=== PATIENT | female | born 1950 | race Caucasian/White ===

== ENCOUNTER → 2017-06-03 | Outpatient (CLI) | payer MEDICARE ==
[2017-06-03 08:03] LABS: Basophils % (A) 0 %; CH 29.4; CHCM 33.2; Eosinophils # (A) 0.1 k/uL (0-0.7); Eosinophils % (A) 3 %; HCT 43.4 % (34.0-46.0); HDW 2.49; HGB 14.2 gm/dL (11.4-16.0); Luc # (Auto) 0.12; Luc % (Auto) 2; Lymphocytes # (A) 1.5 k/uL (1.0-4.8); Lymphocytes % (A) 28 %; MCH 29.2 pg (25.0-35.0); MCHC 32.7 g/dL (31.0-37.0); MCV 89.2 fL (80.0-100.0); Mean Platelet Volume 8.8; Monocytes # (A) 0.4 k/uL (0-1.0); Monocytes % (A) 8 %; Neutrophils # (A) 3.2 k/uL (1.3-7.7); Neutrophils % (A) 59 %; RBC 4.86 m/uL (3.80-5.40); RDW 13.2 % (11.5-15.5); WBC 5.4 k/uL (3.8-10.6); WBC (Perox) 5.57
[2017-06-03 08:31] LABS: ALT 37 U/L (9-52); AST 26 U/L (14-36); Alkaline Phosphatase 83 U/L (38-126); Anion Gap 8 mmol/L; Blood Urea Nitrogen 19 mg/dL (7-17); Calcium 9.7 mg/dL (8.4-10.2); Carbon Dioxide 27 mmol/L (22-30); Chloride 107 mmol/L (98-107); Cholesterol 283 mg/dL (<200); Glucose 95 mg/dL (74-99); HDL Cholesterol 57 mg/dL (40-60); Non-African American GFR(MDRD) >60 (>60 ml/min/1.73 sqM); Sodium 142 mmol/L (137-145); Total Bilirubin 0.6 mg/dL (0.2-1.3); Total Protein 7.1 g/dL (6.3-8.2)
== END | disposition home or self-care (01) ==
LOC: LABWHC1 07:36
PROVIDERS: ATTEND Internal Medicine Cardiovascular Disease
DX: I10 Essential (primary) hypertension (principal); R42 Dizziness and giddiness
CPT/HCPCS: 36415; 80053; 80061; 84439; 84443; 85025

== ENCOUNTER → 2017-09-05 | Outpatient (CLI) | payer MEDICARE ==
[2017-09-05 09:19] LABS: Albumin 4.4 g/dL (3.5-5.0); Bilirubin, Delta 0.2 mg/dL (0.0-0.2); Bilirubin,Unconjugated 0.5 mg/dL (0.0-1.1); Total Bilirubin 0.7 mg/dL (0.2-1.3); Total Protein 6.9 g/dL (6.3-8.2)
== END | disposition home or self-care (01) ==
LOC: LABWHC1 08:33
PROVIDERS: ATTEND Internal Medicine Cardiovascular Disease
DX: E78.5 Hyperlipidemia, unspecified (principal)
CPT/HCPCS: 36415; 80061; 80076

== ENCOUNTER 2018-01-13 23:37 | Emergency (ER) | payer MEDICARE ==
--- NOTE | 2018-01-14 00:25 | XR ---
EXAMINATION TYPE: XR KUB DATE OF EXAM: 01/14/2018 COMPARISON: 03/20/2010 HISTORY: Left lower quadrant pain TECHNIQUE: 2 views FINDINGS: There is no sign of intestinal obstruction or pneumoperitoneum. Fecal pattern is normal. Th ere are no pathologic calcifications over the kidneys. There is slight lumbar dextroscoliosis. IMPRESSION: Nonacute abdomen. No change.
[2018-01-14 00:36] LABS: Basophils % (A) 0 %; Eosinophils # (A) 0.2 k/uL (0-0.7); Eosinophils % (A) 1 %; HCT 37.7 % (34.0-46.0); HGB 13.2 gm/dL (11.4-16.0); Lymphocytes % (A) 17 %; MCH 29.5 pg (25.0-35.0); MCHC 35.1 g/dL (31.0-37.0); MCV 84.1 fL (80.0-100.0); Mean Platelet Volume 8.5; Monocytes # (A) 1.1 k/uL (0-1.0); Monocytes % (A) 9 %; Neutrophils # (A) 8.7 k/uL (1.3-7.7); Neutrophils % (A) 72 %; Platelet Count 146 k/uL (150-450); RBC 4.49 m/uL (3.80-5.40); WBC 12.2 k/uL (3.8-10.6)
[2018-01-14 00:48] LABS: ALT 98 U/L (9-52); AST 117 U/L (14-36); Albumin 3.9 g/dL (3.5-5.0); Alkaline Phosphatase 143 U/L (38-126); Amylase <30 U/L (30-110); Anion Gap 13 mmol/L; Blood Urea Nitrogen 17 mg/dL (7-17); C Reactive Protein 66.1 mg/L (<10.0); Calcium 8.9 mg/dL (8.4-10.2); Carbon Dioxide 25 mmol/L (22-30); Chloride 100 mmol/L (98-107); Glucose 106 mg/dL (74-99); Lipase 53 U/L (23-300); Potassium 3.5 mmol/L (3.5-5.1); Sodium 138 mmol/L (137-145); Total Bilirubin 1.5 mg/dL (0.2-1.3); Total Protein 6.3 g/dL (6.3-8.2)
--- NOTE | 2018-01-14 00:52 | ED ---
Abdominal Pain HPI - General Chief Complaint: Abdominal Pain Stated Complaint: abd pain Time Seen by Provider: 01/13/18 23:55 Source: patient Mode of arrival: ambulatory Limitations: no limitations - History of Present Illness Initial Comments: This patient is 67-year-old woman who presents to be evaluated for left lower quadrant abdominal pain. Patient is going on her second day of symptoms. She states that this is identical to previous episodes of diverticulitis. She believes that it may be related to having eaten solid with nuts over the weekend. Patient has felt warm. She states that the pain is aching, constant, moderate intensity. It is worse with palpation of the abdomen. She has not discovered any relieving factors. She has not had nausea or vomiting. Patient denies any urinary changes. Last bowel movement was normal. MD Complaint: abdominal pain Onset/Timin -: days(s) Location: LLQ Radiation: none Migration to: no migration Severity: moderate Quality: aching Consistency: constant Improves With: nothing Worsens With: nothing Associated Symptoms: denies other symptoms - Related Data Previous Rx's Medication Instructions Recorded Ciprofloxacin HCl [Cipro] 500 mg PO Q12HR #14 tablet 01/14/18 metroNIDAZOLE [Flagyl] 500 mg PO TID #21 tab 01/14/18 Allergies Allergy/AdvReac Type Severity Reaction Status Date / Time No Known Allergies Allergy Verified 01/13/18 23:44 Review of Systems ROS Statement: Those systems with pertinent positive or pertinent negative responses have been documented in the HPI. ROS Other: All systems not noted in ROS Statement are negative. Constitutional: Denies: fever, chills Respiratory: Denies: cough, dyspnea Cardiovascular: Denies: chest pain, palpitations, edema Gastrointestinal: Reports: abdominal pain. Denies: nausea, vomiting, diarrhea, constipation, melena, hematochezia Genitourinary: Denies: dysuria, hematuria Musculoskeletal: Denies: back pain Skin: Denies: rash Neurological: Denies: headache, weakness, numbness Past Medical History Past Medical History: Atrial Fibrillation, Hypertension Additional Past Medical History / Comment(s): diverticulitis History of Any Multi-Drug Resistant Organisms: None Reported Additional Past Surgical History / Comment(s): bowel resection; A&P repair Past Psychological History: No Psychological Hx Reported Smoking Status: Never smoker Past Alcohol Use History: Rare Past Drug Use History: None Reported General Exam Limitations: no limitations General appearance: alert, in no apparent distress Head exam: Present: atraumatic, normocephalic Eye exam: Present: normal appearance. Absent: scleral icterus, conjunctival injection ENT exam: Present: normal oropharynx Neck exam: Present: normal inspection Respiratory exam: Present: normal lung sounds bilaterally. Absent: respiratory distress, wheezes, rales, rhonchi, stridor Cardiovascular Exam: Present: regular rate, normal rhythm, normal heart sounds. Absent: systolic murmur, diastolic murmur, rubs, gallop GI/Abdominal exam: Present: soft, tenderness (Moderate left lower quadrant tenderness, no rebound or guarding), normal bowel sounds. Absent: distended, guarding, rebound, rigid, mass, bruit, pulsatile mass, hernia Extremities exam: Present: normal inspection, normal capillary refill. Absent: pedal edema, calf tenderness Back exam: Present: normal inspection. Absent: CVA tenderness (R), CVA tenderness (L) Neurological exam: Present: alert Skin exam: Present: warm, dry, intact, normal color. Absent: rash Course Vital Signs 01/13/18 23:40 Temperature 98.1 F Pulse Rate 78 Respiratory 18 Rate Blood Pressure 131/80 O2 Sat by Pulse 98 Oximetry Medical Decision Making - Lab Data Result diagrams: 01/14/18 00:18 01/14/18 00:18 Lab Results 01/14/18 01/14/18 Range/Units 00:18 00:18 WBC 12.2 H (3.8-10.6) k/uL RBC 4.49 (3.80-5.40) m/uL Hgb 13.2 (11.4-16.0) gm/dL Hct 37.7 (34.0-46.0) % MCV 84.1 (80.0-100.0) fL MCH 29.5 (25.0-35.0) pg MCHC 35.1 (31.0-37.0) g/dL RDW 13.0 (11.5-15.5) % Plt Count 146 L (150-450) k/uL Neutrophils % 72 % Lymphocytes % 17 % Monocytes % 9 % Eosinophils % 1 % Basophils % 0 % Neutrophils # 8.7 H (1.3-7.7) k/uL Lymphocytes # 2.0 (1.0-4.8) k/uL Monocytes # 1.1 H (0-1.0) k/uL Eosinophils # 0.2 (0-0.7) k/uL Basophils # 0.0 (0-0.2) k/uL Sodium 138 (137-145) mmol/L Potassium 3.5 (3.5-5.1) mmol/L Chloride 100 (98-107) mmol/L Carbon Dioxide 25 (22-30) mmol/L Anion Gap 13 mmol/L BUN 17 (7-17) mg/dL Creatinine 0.70 (0.52-1.04) mg/dL Est GFR (CKD-EPI)AfAm >90 (>60 ml/min/1.73 sqM) Est GFR (CKD-EPI)NonAf 89 (>60 ml/min/1.73 sqM) Glucose 106 H (74-99) mg/dL Calcium 8.9 (8.4-10.2) mg/dL Total Bilirubin 1.5 H (0.2-1.3) mg/dL AST 117 H (14-36) U/L ALT 98 H (9-52) U/L Alkaline Phosphatase 143 H (38-126) U/L C-Reactive Protein 66.1 H (<10.0) mg/L Total Protein 6.3 (6.3-8.2) g/dL Albumin 3.9 (3.5-5.0) g/dL Amylase <30 L (30-110) U/L Lipase 53 (23-300) U/L Disposition Clinical Impression: Diverticulitis Disposition: HOME SELF-CARE Condition: Fair Instructions: Diverticulitis (ED) Prescriptions: Ciprofloxacin HCl [Cipro] 500 mg PO Q12HR #14 tablet metroNIDAZOLE [Flagyl] 500 mg PO TID #21 tab Is patient prescribed a controlled substance at d/c from ED?: No Referrals: None,Stated [Primary Care Provider] - 1-2 days Sarthak Cazares MD [STAFF PHYSICIAN] - 1-2 days
[2018-01-14] MEDS ORDERED: LEVOFLOXACIN 750 MG TAB PO STA (01:56)
[2018-01-14] MEDS ORDERED: metroNIDAZOLE 500 MG TAB PO STA (01:56)
[2018-01-14 02:33] VITALS: BP 118/63; PULSE 70; RESP 17; TEMP 98.6
== END 2018-01-14 02:33 | disposition home or self-care (01) ==
LOC: EC 23:37
DX: K57.92 Diverticulitis of intestine, part unspecified, without perforation or abscess without bleeding (principal)
CPT/HCPCS: 36415; 74018; 80053; 82150; 83690; 85025; 86140; 99284

== ENCOUNTER → 2019-04-23 | Outpatient (CLI) | payer MEDICARE ==
[2019-04-23 07:58] LABS: Basophils % (A) 1 %; Eosinophils # (A) 0.2 k/uL (0-0.7); Eosinophils % (A) 3 %; HCT 43.7 % (34.0-46.0); HGB 14.4 gm/dL (11.4-16.0); Lymphocytes # (A) 1.9 k/uL (1.0-4.8); Lymphocytes % (A) 30 %; MCH 28.9 pg (25.0-35.0); MCV 87.8 fL (80.0-100.0); Mean Platelet Volume 7.2; Monocytes # (A) 0.4 k/uL (0-1.0); Monocytes % (A) 7 %; Neutrophils # (A) 3.7 k/uL (1.3-7.7); Neutrophils % (A) 57 %; Platelet Count 192 k/uL (150-450); RBC 4.98 m/uL (3.80-5.40); RDW 12.7 % (11.5-15.5); WBC 6.4 k/uL (3.8-10.6)
[2019-04-23 11:52] LABS: African American GFR (CKD) 86.6 (60.0-200.0); Albumin 4.7 g/dL (3.80-4.90); Albumin/Globulin Ratio 2.47 (1.60-3.17); Anion Gap 9.7 mmol/L (4.00-12.00); BUN/Creat Ratio 17.5 Ratio (12.00-20.00); Calcium 9.6 mg/dL (8.7-10.3); Carbon Dioxide 28.3 mmol/L (21.6-31.8); Chol/HDL Ratio 4.12; Globulin 1.9 g/dL (1.6-3.3); Potassium 3.7 mmol/L (3.5-5.5); Total Bilirubin 0.9 mg/dL (0.2-1.2); Total Protein 6.6 g/dL (6.2-8.2)
== END | disposition home or self-care (01) ==
LOC: LABWHC1 07:37
PROVIDERS: ATTEND Internal Medicine Cardiovascular Disease
DX: I10 Essential (primary) hypertension (principal); E78.5 Hyperlipidemia, unspecified
CPT/HCPCS: 36415; 80053; 80061; 85025

== ENCOUNTER → 2019-08-14 | Outpatient (CLI) | payer MEDICARE ==
--- NOTE | 2019-08-14 10:40 | MR ---
EXAMINATION TYPE: MR brain wo/w con DATE OF EXAM: 08/14/2019 10:28 AM COMPARISON: NONE HISTORY: Abnormal gaiting TECHNIQUE: Multiplanar, multiecho imaging of the brain was obtained with and without intravenous adm inistration of 7 mL intravenous Gadavist. FINDINGS: Midline structures are unremarkable. There is a normal craniocervical junction. Echoplanar diffusion imaging is normal. There are normal vascular flow voids. The orbits are unremarkable. There is chronic mucoperiosteal thickening involving the maxillary and ethmoidal sinuses bilaterally. There is a 12 mm retention cyst or polyp arising from the medial wall of the right maxillary sinus. There is no evidence of a CP angle mass lesion. There is no acute focal lesion, mass effect or midline shift identified. I do not see evidence of int racranial blood. Following intravenous administration of gadolinium, I do not see evidence of abnormal enhancement. IMPRESSION: 1. NO ACUTE INTRACRANIAL ABNORMALITY. 2. 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
== END | disposition home or self-care (01) ==
LOC: RADMRIMAIN 09:25
PROVIDERS: ATTEND Family Medicine
DX: R26.89 Other abnormalities of gait and mobility (principal); M79.2 Neuralgia and neuritis, unspecified
CPT/HCPCS: 70553; A9585

== ENCOUNTER → 2019-08-23 | Outpatient (CLI) | payer MEDICARE ==
--- NOTE | 2019-08-25 10:23 | MM ---
Reason for exam: screening (asymptomatic). Last mammogram was performed 5 years and 7 months ago. History: Patient is postmenopausal. Family history of premenopausal breast cancer in daughter at age 29. Benign excisional biopsy of the right breast, 1979. Took hormonal contraceptives for 3 years. Physical Findings: A clinical breast exam by your physician is recommended on an annual basis and results should be correlated with mammographic findings. MG 3D Screening Mammo W/Cad Bilateral CC and MLO view(s) were taken. Prior study comparison: January 10, 2014, bilateral MG screening mammo w CAD. The breast tissue is heterogeneously dense. This may lower the sensitivity of mammography. There is a 4mm left central lower left mass at posterior depth, possible skin mass. Benign appearing bilateral calcifications. Right retroareolar lateral asymmetry. Right upper outer quadrant middle depth oval focal asymmetry 6.5cm from nipple. ASSESSMENT: Incomplete: need additional imaging evaluation, BI-RAD 0 RECOMMENDATION: Special view mammogram of both breasts. If lesion persists on supplemental views, image directed ultrasound is recommended. [facility] will attempt to contact patient to return for supplemental views and ultrasound if indicated.
== END | disposition home or self-care (01) ==
LOC: RADMAMWWP 14:24
PROVIDERS: ATTEND Family Medicine
DX: Z12.31 Encounter for screening mammogram for malignant neoplasm of breast (principal)
CPT/HCPCS: 77063; 77067

== ENCOUNTER → 2019-09-03 | Outpatient (CLI) | payer MEDICARE ==
--- NOTE | 2019-09-06 09:06 | MM ---
Reason for exam: additional evaluation requested from abnormal screening. Last mammogram was performed less than 1 month ago. History: Patient is postmenopausal. Family history of premenopausal breast cancer in daughter at age 29. Benign excisional biopsy of the right breast, 1979. Took hormonal contraceptives for 3 years. Physical Findings: Nurse did not find any significant physical abnormalities on exam. MG 3D Work Up W/Cad KRIS Bilateral spot compression CC, spot compression MLO, and LM view(s) were taken. Prior study comparison: August 23, 2019, bilateral MG 3d screening mammo w/cad. January 10, 2014, bilateral MG screening mammo w CAD. There is no discrete abnormality left breast, keratosis on skin. Focal asymmetry subareolar right breast, likely summation. These results were verbally communicated with the patient and result sheet given to the patient on 09/03/19. ASSESSMENT: Probably benign, BI-RAD 3 RECOMMENDATION: Follow-up diagnostic mammogram of the right breast in 6 months.
== END | disposition home or self-care (01) ==
LOC: RADMAMWWP 09:59
PROVIDERS: ATTEND Family Medicine
DX: R92.8 Other abnormal and inconclusive findings on diagnostic imaging of breast (principal)
CPT/HCPCS: 77066; G0279; 77062

== ENCOUNTER 2020-01-06 06:59 | Day surgery (SDC) | payer MEDICARE ==
[~2020-01-06 06:59] MED LIST: LACTATED RINGERS 1,000 ML IV SCH
[2020-01-06 07:35] VITALS: RESP 16; TEMP 97.7
--- NOTE | 2020-01-06 07:58 | P.GSHP ---
History of Present Illness H&P Date: 01/06/20 CHIEF COMPLAINT: Colon screen HISTORY OF PRESENT ILLNESS: The patient is a 69-year-old female who presents for colon screen. Lower endoscopy was offered for further evaluation and management. PAST MEDICAL HISTORY: Please see list. PAST SURGICAL HISTORY: Please see list. MEDICATIONS: Please see list. ALLERGIES: Please see list. SOCIAL HISTORY: No illicit drug use FAMILY HISTORY: No reports of Crohn disease or ulcerative colitis. REVIEW OF ORGAN SYSTEMS: CONSTITUTIONAL: No reports of fevers or chills. PHYSICAL EXAM: VITAL SIGNS: Stable GENERAL: Well-developed pleasant in no acute distress. HEENT: No scleral icterus. Extraocular movements grossly intact. Moist buccal mucosa. NECK: Supple without lymphadenopathy. CHEST: Unlabored respirations. Equal bilateral excursions. CARDIOVASCULAR: Regular rate and rhythm. Distal 2+ pulses. ABDOMEN: Soft, nontender, nondistended. MUSCULOSKELETAL: No clubbing, cyanosis, or edema. ASSESSMENT: 1. Colon screen. PLAN: 1. Recommend proceeding with a lower endoscopy Past Medical History Past Medical History: Atrial Fibrillation, Hypertension Additional Past Medical History / Comment(s): diverticulitis, hemorrhoids, change in stool. polyneuropathy,. hx. PSVT History of Any Multi-Drug Resistant Organisms: None Reported Past Surgical History: Bowel Resection Additional Past Surgical History / Comment(s): bowel resection; A&P repair Past Anesthesia/Blood Transfusion Reactions: Motion Sickness Smoking Status: Never smoker - Past Family History Brother(s) Family Medical History: AFIB, CVA/TIA Mother Family Medical History: AFIB, CVA/TIA Father Family Medical History: Myocardial Infarction ([place]) Sister(s) Family Medical History: Cancer Additional Family Medical History / Comment(s): ovarian and uterine cancer Medications and Allergies Home Medications Medication Instructions Recorded Confirmed Type Acyclovir [Zovirax] 500 mg PO DIRECTED 01/03/20 01/06/20 History Aspirin [Adult Low Dose Aspirin EC] 81 mg PO DAILY 01/03/20 01/06/20 History Diclofenac Sodium Gel [Voltaren 4 gm TOPICAL QID PRN 01/03/20 01/06/20 History Gel] Gabapentin [Neurontin] 300 mg PO HS 01/03/20 01/06/20 History Lisinopril-Hctz 10-12.5 mg 1 tab PO BID 01/03/20 01/06/20 History [Zestoretic 10-12.5] Pravastatin Sodium [Pravachol] 40 mg PO DAILY 01/03/20 01/06/20 History amLODIPine [Norvasc] 2 mg PO PRN 01/06/20 History Allergies Allergy/AdvReac Type Severity Reaction Status Date / Time No Known Allergies Allergy Verified 01/06/20 07:23 Surgical - Exam Vital Signs Temp Pulse Resp BP Pulse Ox 97.7 F 80 16 149/70 98 01/06/20 07:30 01/06/20 07:30 01/06/20 07:30 01/06/20 07:30 01/06/20 07:30
[2020-01-06] MEDS ORDERED: PROPOFOL 10 MG/ML 20 ML VIAL IV ONE (08:04)
--- NOTE | 2020-01-06 08:51 | P.PCN ---
Date of Procedure: 01/06/20 Description of Procedure: PREOPERATIVE DIAGNOSIS: Colonoscopy screening. POSTOPERATIVE DIAGNOSIS: Colonoscopy screening. Severe sigmoid diverticulosis OPERATION: Colonoscopy to the cecum, ileocecal valve and appendiceal orifice. SURGEON: Jennifer Berumen MD. ANESTHESIA: MAC. INDICATIONS: The patient is a 69-year-old female who presents for colonoscopy screening. Last colonoscopy over 10 years ago. Benefits and risks were described and informed consent was obtained. DESCRIPTION OF PROCEDURE: The patient had undergone Suprep. She had been brought into the operating room and laid in the left lateral decubitus position. After adequate intravenous sedation, the rectum was examined with 2% lidocaine jelly. External hemorrhoids were encountered. The rectal tone was within normal limits. No lesions were palpated in the rectal vault. An Olympus colonoscope was initially advanced however unable to traverse the sigmoid colon. The scope was exchanged for a pediatric colonoscope. The sigmoid colon was highly redundant requiring abdominal wall pressure. The scope advanced until the cecum, ileocecal valve and appendiceal orifice were clearly viewed. The prep was excellent with clear visualization of the mucosal folds. The scope was removed with visualization of each mucosal fold. Severe sigmoid diverticulosis was encountered. No colonic polyps were found. No evidence of focal colitis was found. Retroflexion of the scope demonstrated grade 3 internal hemorrhoids without active bleeding or inflammation. The colon was desufflated. The patient had tolerated the procedure well. Withdrawal time was over 6 minutes. FINDINGS: Aronchick preparation quality scale 1 (1-5) Internal hemorrhoids, grade 3 External prolapsed hemorrhoids, grade 3 Severe sigmoid diverticulosis with highly redundant sigmoid colon No arteriovenous malformations. No adenomatous polyps. No focal colitis. RECOMMENDATIONS: Lower endoscopy every 10 years per screening guidelines in year 2029 or Cologaurd Plan - Discharge Summary Discharge Rx Participant: No New Discharge Prescriptions: Continue Pravastatin Sodium [Pravachol] 40 mg PO DAILY Lisinopril-Hctz 10-12.5 mg [Zestoretic 10-12.5] 1 tab PO BID Gabapentin [Neurontin] 300 mg PO HS Acyclovir [Zovirax] 500 mg PO DIRECTED Aspirin [Adult Low Dose Aspirin EC] 81 mg PO DAILY Diclofenac Sodium Gel [Voltaren Gel] 4 gm TOPICAL QID PRN PRN Reason: Pain amLODIPine [Norvasc] 2 mg PO PRN PRN Reason: Hypertension Discharge Medication List Acyclovir [Zovirax] 500 mg PO DIRECTED 01/03/20 [History] Aspirin [Adult Low Dose Aspirin EC] 81 mg PO DAILY 01/03/20 [History] Diclofenac Sodium Gel [Voltaren Gel] 4 gm TOPICAL QID PRN 01/03/20 [History] Gabapentin [Neurontin] 300 mg PO HS 01/03/20 [History] Lisinopril-Hctz 10-12.5 mg [Zestoretic 10-12.5] 1 tab PO BID 01/03/20 [History] Pravastatin Sodium [Pravachol] 40 mg PO DAILY 01/03/20 [History] amLODIPine [Norvasc] 2 mg PO PRN 01/06/20 [History] Follow up Appointment(s)/Referral(s): Jennifer Berumen MD [STAFF PHYSICIAN] - As Needed Patient Instructions/Handouts: Diverticulosis Diet (GEN), Diverticulosis (DC) Activity/Diet/Wound Care/Special Instructions: Colonoscopy as needed. In future, Cologaurd Discharge Disposition: HOME SELF-CARE
[2020-01-06 08:58] VITALS: BP 138/86; PULSE 71
== END 2020-01-06 10:09 | disposition home or self-care (01) ==
LOC: ORWHC2ENDO 06:59
PROVIDERS: ATTEND Surgery Plastic and Reconstructive Surgery
DX: Z12.11 Encounter for screening for malignant neoplasm of colon (principal); K57.30 Diverticulosis of large intestine without perforation or abscess without bleeding; K64.2 Third degree hemorrhoids; K64.4 Residual hemorrhoidal skin tags; I48.91 Unspecified atrial fibrillation; I10 Essential (primary) hypertension; I47.1 Supraventricular tachycardia; G62.9 Polyneuropathy, unspecified; Z79.82 Long term (current) use of aspirin; Z79.899 Other long term (current) drug therapy; Z90.49 Acquired absence of other specified parts of digestive tract; Z82.49 Family history of ischemic heart disease and other diseases of the circulatory system; Z80.41 Family history of malignant neoplasm of ovary; Z80.49 Family history of malignant neoplasm of other genital organs; Z87.19 Personal history of other diseases of the digestive system
CPT/HCPCS: J2704; G0121; 45378

== ENCOUNTER → 2020-04-25 | Outpatient (CLI) | payer MEDICARE ==
[2020-04-25 16:06] LABS: HCT 44.5 % (34.0-46.0); HGB 15.1 gm/dL (11.4-16.0); MCH 30.6 pg (25.0-35.0); MCHC 33.8 g/dL (31.0-37.0); MCV 90.3 fL (80.0-100.0); Mean Platelet Volume 8.9; Platelet Count 176 k/uL (150-450); RBC 4.92 m/uL (3.80-5.40); RDW 12.1 % (11.5-15.5); WBC 8.2 k/uL (3.8-10.6)
[2020-04-25 16:15] LABS: African American GFR (CKD) >90 (>60 ml/min/1.73 sqM); Anion Gap 7 mmol/L; Blood Urea Nitrogen 11 mg/dL (7-17); Carbon Dioxide 30 mmol/L (22-30); Chloride 99 mmol/L (98-107); Non-African American GFR(CKD) >90 (>60 ml/min/1.73 sqM); Potassium 4.4 mmol/L (3.5-5.1); Sodium 136 mmol/L (137-145)
== END | disposition home or self-care (01) ==
LOC: LABPAT 15:04
PROVIDERS: ATTEND Internal Medicine Cardiovascular Disease
DX: Z01.818 Encounter for other preprocedural examination (principal); R55 Syncope and collapse
CPT/HCPCS: 80051; 82565; 84520; 85027

== ENCOUNTER 2020-04-27 08:31 | Day surgery (SDC) | payer MEDICARE ==
[2020-04-26 11:24] VITALS: BMI 25.7
[~2020-04-27 08:31] MED LIST changes: -LACTATED RINGERS 1,000 ML IV SCH; +SODIUM CHLORIDE 0.9% 1,000 ML IV SCH
[2020-04-27] MEDS ORDERED: SODIUM CHLORIDE 0.9% 500 ML 500 ML IV ONE (09:07)
[2020-04-27 09:10] VITALS: RESP 16; TEMP 98.2
[2020-04-27] MEDS ORDERED: LIDOCAINE 1% INJ 10MG/ML (20 ML MDV) ONE (12:04)
[2020-04-27] MEDS ORDERED: fentaNYL (PF) 50 MCG/ML 2 ML AMP ONE (12:05)
[2020-04-27] MEDS ORDERED: LIDOCAINE 1% INJ 10MG/ML (20 ML MDV) SQ ONE (12:07)
[2020-04-27] MEDS ORDERED: MIDAZOLAM 2 MG/2 ML VIAL IVP ONE (12:07)
[2020-04-27] MEDS ORDERED: fentaNYL (PF) 50 MCG/ML 2 ML AMP IVP ONE (12:07)
--- NOTE | 2020-04-27 12:24 | P.PCN ---
Date of Procedure: 04/27/20 Preoperative Diagnosis: Recurrent near syncopal episodes. Rule out tachybradycardia syndrome Postoperative Diagnosis: The same Procedure(s) Performed: Insertion of the loop recorder Description of Procedure: Patient was brought to the lab in a fasting state. He was prepped and draped in the usual fashion. She was given 1 mg of Versed and 50 mics of fentanyl for sedation. The skin in the third intercostal space was infiltrated with lidocaine. An incision was made in the loop recorder was inserted in the usual fashion. Patient tolerated the procedure well. The incision is closed with 2 stay silk sutures. Patient tolerated the procedure well. Programming. Usual programming is done. Minimum heart rate detection was programmed at rate of 30 and below. The minimal pause duration was programmed to more than 3 seconds. Atrial fibrillation dictation is programmed. Final impression: #1. Successful implantation of loop recorder. Plan: Patient will be discharged home later today. Follow-up in the office in o ne week. Continue home medication and prophylactic antibiotic
[2020-04-27 13:15] VITALS: BP 117/58; PULSE 74
== END 2020-04-27 13:02 | disposition home or self-care (01) ==
LOC: CATHEP 08:31
PROVIDERS: ATTEND Internal Medicine Cardiovascular Disease
DX: R55 Syncope and collapse (principal); R42 Dizziness and giddiness; R00.0 Tachycardia, unspecified; E78.2 Mixed hyperlipidemia; I10 Essential (primary) hypertension; G62.9 Polyneuropathy, unspecified; Z79.899 Other long term (current) drug therapy; Z87.09 Personal history of other diseases of the respiratory system
CPT/HCPCS: 33285; C1764; J2250; J0690; J2001; J3010

== ENCOUNTER → 2020-12-28 | Outpatient (CLI) | payer MEDICARE ==
--- NOTE | 2020-12-29 09:57 | MM ---
Reason for exam: additional evaluation requested from prior study. Last mammogram was performed 1 year and 4 months ago. History: Patient is postmenopausal. Family history of premenopausal breast cancer in daughter at age 29. Benign excisional biopsy of the right breast, 1979. Took hormonal contraceptives for 3 years. Physical Findings: Nurse did not find any significant physical abnormalities on exam. MG Diagnostic Mammo w CAD KRIS Bilateral CC and MLO view(s) were taken. Prior study comparison: September 03, 2019, bilateral MG 3d work up w/cad KRIS. August 23, 2019, bilateral MG 3d screening mammo w/cad. The breast tissue is heterogeneously dense. This may lower the sensitivity of mammography. Bilateral asymmetries. No change. Left loop recorder. These results were verbally communicated with the patient and result sheet given to the patient on 12/28/20. ASSESSMENT: Benign, BI-RAD 2 RECOMMENDATION: Routine screening mammogram of both breasts in 1 year.
== END ==
LOC: RADMAMWWP 10:04
PROVIDERS: ATTEND Family Medicine
DX: R92.8 Other abnormal and inconclusive findings on diagnostic imaging of breast (principal)
CPT/HCPCS: 77066

== ENCOUNTER → 2022-11-06 | Outpatient (CLI) | payer MEDICARE ==
--- NOTE | 2022-11-07 19:39 | MM ---
Reason for Exam: Screening (asymptomatic). Last mammogram was performed 1 year(s) and 10 month(s) ago. Patient History: Menarche at age 11. First Full-Term at age 22. Postmenopausal. Patient has history of breast feeding. Patient used Hormonal Contraceptives for 3 years. 1980, Benign Excisional Biopsy on the right side. Daughter had breast cancer, age 29. Sister had ovarian cancer under age 50. Risk Values: Tasha 5 year model risk: 4.0%. NCI Lifetime model risk: 9.0%. Prior Study Comparison: 01/10/2014 Bilateral Screening Mammogram, [facility]. 08/23/2019 Bilateral Screening Mammogram, [facility]. 09/03/2019 Bilateral Diagnostic Mammogram, [facility]. 12/28/2020 Bilateral Diagnostic Mammogram, [facility]. Tissue Density: The breast tissue is heterogeneously dense. This may lower the sensitivity of mammography. Findings: Analyzed By CAD. Loop recorder device on the left. There is an asymmetric density remain unchanged. A few scattered benign oil cyst and vascular calcifications are redemonstrated. No significant change from prior exams. Overall Assessment: Benign, BI-RAD 2 Management: Screening Mammogram of both breasts in 1 year. 1. Note that per NCCN guidelines, a five-year risk assessment greater than 1.67% is used to assess eligibility for a risk reducing agent. 2. Patient should continue monthly self breast exams. 3. This exam should not preclude additional follow-up of suspicious palpable abnormalities. Electronically signed and approved by: Heena Mandel M.D. Radiologist
== END | disposition home or self-care (01) ==
LOC: RADMAMWWP 12:37
PROVIDERS: ATTEND Family Medicine
DX: Z12.31 Encounter for screening mammogram for malignant neoplasm of breast (principal); Z78.0 Asymptomatic menopausal state; Z80.3 Family history of malignant neoplasm of breast
CPT/HCPCS: 77063; 77067

== ENCOUNTER → 2023-11-12 | Outpatient (CLI) | payer MEDICARE ==
[2023-11-12 09:50] LABS: African American GFR (CKD) >90 (>60 ml/min/1.73 sqM); Blood Urea Nitrogen 12 mg/dL (7-17); Non-African American GFR(CKD) 88 (>60 ml/min/1.73 sqM)
--- NOTE | 2023-11-14 18:37 | CT ---
EXAMINATION TYPE: CT abdomen pelvis w con DATE OF EXAM: 11/12/2023 COMPARISON: 03/13/2011 INDICATION: diverticulitis. DLP: 562.30 mGycm, Automated exposure control for dose reduction was used. CONTRAST: 100ml mL of Isovue 300. Study performed with Oral Contrast TECHNIQUE: Axial images were obtained from above the diaphragm to the pubic rami in the axial plane a t 5 mm thick sections. Reconstructed images are reviewed on the computer in the coronal plane. FINDINGS: Limited CT sections are obtained the lung bases. The lung bases are clear. There is a moderate-size d hiatal hernia present CT ABDOMEN: Liver: Normal Spleen: Normal Pancreas: Normal Adrenal glands: The adrenal glands are normal. Gallbladder: Normal Kidneys: No masses are evident. No hydronephrosis is present. No cysts are present. Delayed images were obtained through the kidneys, which remain unremarkable. Aorta: Vascular calcification is within the aorta. Inferior vena cava: Normal. CT PELVIS: Loops of bowel within the abdomen and pelvis are normal. The study is with oral contrast. There a re loops of bowel lacking oral contrast or incompletely distended limiting their evaluation. The rect osigmoid region appears dilated with fecal debris. Correlate for constipation or fecal impaction. Appendix: Not visualized. No dilated tubular structure or inflammatory changes evident. Urinary bladder: Normal. Genitourinary structures: Uterus and adnexa appear normal. Osseous structures: No suspicious lytic or sclerotic lesions. Scoliosis is present. IMPRESSION: 1. Focal correlation for constipation or fecal impaction. 2. Moderate-sized hiatal hernia.
== END | disposition home or self-care (01) ==
LOC: RADCTMAIN 09:03
PROVIDERS: ATTEND Surgery Plastic and Reconstructive Surgery
DX: K44.9 Diaphragmatic hernia without obstruction or gangrene (principal); K57.32 Diverticulitis of large intestine without perforation or abscess without bleeding
CPT/HCPCS: 82565; 84520; 74177; 36415; Q9967

== ENCOUNTER → 2023-12-16 | Outpatient (CLI) | payer MEDICARE ==
--- NOTE | 2023-12-17 18:41 | MM ---
Reason for Exam: Screening (asymptomatic). Last mammogram was performed 1 year(s) and 2 month(s) ago. Patient History: Menarche at age 11. First Full-Term at age 22. Postmenopausal. Patient has history of breast feeding. Patient used Hormonal Contraceptives for 3 years. 1980, Benign Excisional Biopsy on the right side. Daughter had breast cancer, age 29. Sister had ovarian cancer under age 50. Risk Values: Tasha 5 year model risk: 4.0%. NCI Lifetime model risk: 8.5%. Prior Study Comparison: 09/03/2019 Bilateral Diagnostic Mammogram, [facility]. 12/28/2020 Bilateral Diagnostic Mammogram, [facility]. 11/06/2022 Bilateral MG 3D screening mammo w/cad, [facility]. Tissue Density: The breasts are heterogeneously dense, which may obscure small masses. Findings: Analyzed By CAD. Grouped calcifications medial right breast appears slightly increased. Further magnification views are recommended. Otherwise, benign bilateral oil cyst calcifications are unchanged. Chronic nodularity on the left. Loop recorder device on the left. Overall Assessment: Incomplete: need additional imaging evaluation, BI-RAD 0 Management: Special View Mammogram of the right breast. . [facility] will attempt to contact patient to return for supplemental views. Electronically signed and approved by: Heena Mandel M.D. Radiologist
== END | disposition home or self-care (01) ==
LOC: RADMAMWWP 10:19
PROVIDERS: ATTEND Family Medicine
DX: Z12.31 Encounter for screening mammogram for malignant neoplasm of breast (principal); Z78.0 Asymptomatic menopausal state; Z80.3 Family history of malignant neoplasm of breast
CPT/HCPCS: 77063; 77067

== ENCOUNTER → 2023-12-23 | Outpatient (CLI) | payer MEDICARE ==
--- NOTE | 2023-12-23 10:57 | MM ---
Reason for Exam: Additional evaluation requested from abnormal screening. Last screening mammogram was performed less than 1 month ago. Patient History: Menarche at age 11. First Full-Term at age 22. Postmenopausal. Patient has history of breast feeding. Patient used Hormonal Contraceptives for 3 years. 1980, Benign Excisional Biopsy on the right side. Daughter had breast cancer, age 29. Sister had ovarian cancer under age 50. Risk Values: Tasha 5 year model risk: 4.0%. NCI Lifetime model risk: 8.5%. Tissue Density: Right: The breasts are heterogeneously dense, which may obscure small masses. Findings: Analyzed By CAD. Scattered punctate calcifications seen. Six-month follow-up mammography with spot magnification compression views recommended. Overall Assessment: Probably benign, BI-RAD 3 Management: Diagnostic Mammogram of the right breast in 6 months. . Results were given to the patient verbally at the time of exam. Patient should continue monthly self-breast exams. A clinical breast exam by your physician is recommended on an annual basis. This exam should not preclude additional follow-up of suspicious palpable abnormalities. Note on Tasha scores and lifetime risk: 1. A Tahsa score greater than 3% is considered moderate risk. If this is the case, consider specialist referral to assess eligibility for a risk reducing agent. 2. If overall lifetime risk for the development of breast cancer is 20% or higher, the patient may qualify for future screening with alternating mammogram and breast MRI. Electronically signed and approved by: Anil Seals M.D. Radiologis
== END | disposition home or self-care (01) ==
LOC: RADMAMWWP 10:20
PROVIDERS: ATTEND Family Medicine
DX: R92.8 Other abnormal and inconclusive findings on diagnostic imaging of breast (principal)
CPT/HCPCS: 77065; G0279; 77061

== ENCOUNTER → 2024-05-24 | Outpatient (CLI) | payer MEDICARE ==
[2024-05-24 15:34] LABS: ALT 23 U/L (8-44); AST 27 U/L (13-35); Albumin 4.2 g/dL (3.8-4.9); Albumin/Globulin Ratio 1.75 Ratio (1.60-3.17); Alkaline Phosphatase 100 U/L (41-126); BUN/Creat Ratio 34.86 Ratio (12.00-20.00); Blood Urea Nitrogen 24.4 mg/dL (9.0-27.0); Calcium 9.3 mg/dL (8.7-10.3); Carbon Dioxide 25.3 mmol/L (21.6-31.8); Chloride 95 mmol/L (96-109); Globulin 2.4 g/dL (1.6-3.3); Glucose 99 mg/dL (70-110); Potassium 3.5 mmol/L (3.5-5.5); Sodium 135 mmol/L (135-145); Total Bilirubin 0.7 mg/dL (0.3-1.2); Total Protein 6.6 g/dL (6.2-8.2)
[2024-05-24 15:48] LABS: Basophils # (A) 0.02 X 10*3/uL (0.00-0.10); Basophils % (A) 0.2 %; Eosinophils # (A) 0.12 X 10*3/uL (0.04-0.35); Eosinophils % (A) 1.1 %; HCT 41.2 % (37.2-46.3); HGB 14.1 g/dL (12.0-15.0); Lymphocytes # (A) 1.71 X 10*3/uL (0.90-5.00); Lymphocytes % (A) 16.1 %; MCHC 34.2 g/dL (32.0-37.0); MCV 87.7 FL (80.0-97.0); Mean Platelet Volume 13.1 FL (9.5-12.2); Monocytes # (A) 0.83 X 10*3/uL (0.20-1.00); Monocytes % (A) 7.8 %; NRBC Per 100 WBC 0 X 10*3/uL (0.00-0.01); Neutrophils # (A) 7.91 X 10*3/uL (1.80-7.70); Neutrophils % (A) 74.6 %; Platelet Count 175 X 10*3/uL (140-440); RDW 12.3 % (11.5-14.5); WBC 10.61 X 10*3/uL (4.50-10.00)
== END | disposition home or self-care (01) ==
LOC: LABWHC1 11:24
PROVIDERS: ATTEND Surgery Plastic and Reconstructive Surgery
DX: K57.32 Diverticulitis of large intestine without perforation or abscess without bleeding (principal)
CPT/HCPCS: 36415; 80053; 85025; 86850; 86900; 86901

== ENCOUNTER 2024-05-27 10:16 | Inpatient (IN) | payer MEDICARE ==
[2024-05-21 12:29] VITALS: BMI 27.4
--- NOTE | 2024-05-24 17:02 | P.PN ---
Progress Note - Text Progress Note Date: 05/24/24 Patient's labs reviewed demonstrates elevated white blood cell count. I personally contacted patient [id number] at 1700 hrs. Patient reports that she has been impacted for 3 days with severe perennial pain. Lactulose including Dulcolax suppository prescribed. Additionally, sitz bath advised. Warm compress along the rectum described. Patient does not want to cancel surgery. Likely white blood cell count due to impaction. Will repeat blood work on the day of her procedure.
--- NOTE | 2024-05-27 07:59 | P.GSHP ---
History of Present Illness H&P Date: 05/27/24 CHIEF COMPLAINT: Sigmoid diverticulitis with partial obstruction HISTORY OF PRESENT ILLNESS: The patient is a 73-year-old female who presents with change in bowel habits including intermittent large bowel obstruction for over 6 months. She reports intermittent gas bloat. She had attempted prior colonoscopy unsuccessful. She presents for surgical options, sigmoid colectomy. PAST MEDICAL HISTORY: Please see list. PAST SURGICAL HISTORY: Please see list. MEDICATIONS: Please see list. ALLERGIES: Please see list. SOCIAL HISTORY: No illicit drug use FAMILY HISTORY: No reports of Crohn disease or ulcerative colitis. REVIEW OF ORGAN SYSTEMS: CONSTITUTIONAL: Denies any fever or chills. HEENT: Denies any trouble with vision or nosebleeds. No difficulty swallowing. LYMPHATIC: The patient denies any lumps and bumps around the neck. ENDOCRINE: Denies any thyroid disorders. Has blood sugar glucose intolerance. RESPIRATORY: Denies pneumonia. Denies any troubles with breathing or dyspnea on exertion. CARDIOVASCULAR: Has hypertensive heart disease GASTROINTESTINAL: Has chronic diverticulitis. GENITOURINARY: Has increased urinary frequency. MUSCULOSKELETAL: Has back pain, stiffness, joint arthritis. NEUROLOGIC: Denies any numbness or tingling along the distal extremities. No seizure disorders or headaches. PSYCHIATRIC: Denies depression or suidical ideation. HEMATOLOGIC: Denies any abnormal bleeding or bruising. PHYSICAL EXAM: VITAL SIGNS: Stable GENERAL: Well-developed pleasant in no acute distress. HEENT: No scleral icterus. Extraocular movements grossly intact. Moist buccal mucosa. NECK: Supple without lymphadenopathy. CHEST: Unlabored respirations. Equal bilateral excursions. CARDIOVASCULAR: Regular rate and rhythm. Distal 2+ pulses. ABDOMEN: Soft, nontender, nondistended. MUSCULOSKELETAL: No clubbing, cyanosis, or edema. NERUO: Cranial nerves 2-12 grossly intact. PSYCH: Alert and oriented to person place and time. ASSESSMENT: 1. Sigmoid diverticulosis with intermittent bowel obstruction PLAN: 1. Benefits and risks of surgical robotic sigmoid resection was reviewed in detail. Robotic-assisted approach was also described. 2. Enhanced colon recovery program. 3. DVT prophylaxis. 4. Antibiotic prophylaxis. 5. Inpatient hospitalization greater than 2 nights. 6. Recommend colonoscopy for extent of obstruction including endoscopic tattooing 7. Repeat CBC and CMP on day of admission due to risk of dehydration and increased complication Past Medical History Past Medical History: Atrial Fibrillation, GERD/Reflux, Hyperlipidemia, Hypertension, Supraventricular Tachycardia (SVT) Additional Past Medical History / Comment(s): diverticulitis, hemorrhoids, change in stool. Atrial fib in 1990-second time 2009. Hietal hernia. "Anterior sigmoid diverticulitis that needs to be resected.". polyneuropathy,. hx. PSVT. HAS HAD 2 "near"SYNCOPAL EPISODES History of Any Multi-Drug Resistant Organisms: None Reported Past Surgical History: Bowel Resection Additional Past Surgical History / Comment(s): bowel resection; A&P repair, COLONOSCOPY , Cardiac loop recorder placed chest "Battery is ." bilat cataract removeal with lens implant. Past Anesthesia/Blood Transfusion Reactions: Motion Sickness, Postoperative Nausea & Vomiting (PONV) Additional Past Anesthesia/Blood Transfusion Reaction / Comment(s): No hx of blood transfusion to date. Past Psychological History: No Psychological Hx Reported Smoking Status: Never smoker Past Alcohol Use History: None Reported Past Drug Use History: None Reported - Past Family History Brother(s) Family Medical History: AFIB, CVA/TIA Mother Family Medical History: AFIB, CVA/TIA Father Family Medical History: Myocardial Infarction ([place]) Sister(s) Family Medical History: Cancer Additional Family Medical History / Comment(s): ovarian and uterine cancer Daughter(s) Family Medical History: Cancer Additional Family Medical History / Comment(s): Breast cancer Medications and Allergies Home Medications Medication Instructions Recorded Confirmed Type Acyclovir [Zovirax] 500 mg PO DIRECTED PRN 01/03/20 04/26/20 History Gabapentin [Neurontin] 600 mg PO QAM 01/03/20 05/21/24 History Lisinopril-Hctz 10-12.5 mg 1 tab PO BID 01/03/20 05/21/24 History [Zestoretic 10-12.5] Pravastatin Sodium [Pravachol] 40 mg PO HS 01/03/20 05/21/24 History amLODIPine [Norvasc] 10 mg PO PC-LUNCH PRN 01/06/20 05/21/24 History Coq10(Unknown Dose) 1 dose PO HS 05/21/24 05/21/24 History Gabapentin 600 mg PO HS 05/21/24 05/21/24 History Gabapentin [Neurontin] 300 mg PO 1200 05/21/24 05/21/24 History Metoprolol Tartrate [Lopressor] 25 mg PO BID 05/21/24 05/21/24 History Nortriptyline HCl [Pamelor] 25 mg PO HS 05/21/24 05/21/24 History Lactulose [Cephulac] 30 ml PO BID #500 ml 05/24/24 Rx bisacodyL [Dulcolax] 10 mg RECTAL DAILY #5 supp 05/24/24 Rx Allergies Allergy/AdvReac Type Severity Reaction Status Date / Time No Known Allergies Allergy Verified 05/21/24 12:03
[2024-05-27] MEDS ORDERED: HEPARIN SODIUM,PORCINE 5,000 UNIT/ML 1 ML VIAL SQ PRN (10:41)
[2024-05-27] MEDS ORDERED: PEG 3350 (420 GM/BTL) + LYTES 4,000 ML BOTTLE PO ONE (10:41)
[2024-05-27] MEDS ORDERED: LIDOCAINE 1% (10MG/ML) FOR IV START INTRADERMA PRN (10:41)
[2024-05-27] MEDS ORDERED: Antibiotics per Pharmacy 1 EACH MISC MISCELLANE PRN (10:41)
[2024-05-27] MEDS: IV FLUID CONTINUATION 1,000 ML IV ONE ×2 (11:02→12:29)
[2024-05-27] MEDS ORDERED: PROPOFOL 10 MG/ML 20 ML VIAL IV ONE (11:25)
[2024-05-27 11:37] LABS: Basophils % (A) 0 %; Eosinophils # (A) 0.1 k/uL (0-0.7); Eosinophils % (A) 1 %; HCT 42.5 % (34.0-46.0); HGB 14.7 gm/dL (11.4-16.0); Lymphocytes # (A) 2.6 k/uL (1.0-4.8); Lymphocytes % (A) 29 %; MCH 29.9 pg (25.0-35.0); MCHC 34.5 g/dL (31.0-37.0); MCV 86.5 fL (80.0-100.0); Mean Platelet Volume 9.4; Monocytes # (A) 0.7 k/uL (0-1.0); Monocytes % (A) 7 %; Neutrophils # (A) 5.6 k/uL (1.3-7.7); Neutrophils % (A) 61 %; Platelet Count 256 k/uL (150-450); RBC 4.92 m/uL (3.80-5.40); RDW 12.5 % (11.5-15.5); WBC 9.1 k/uL (3.8-10.6)
[2024-05-27 11:47] LABS: ALT 29 U/L (4-34); AST 34 U/L (14-36); African American GFR (CKD) >90 (>60 ml/min/1.73 sqM); Albumin 4.1 g/dL (3.5-5.0); Alkaline Phosphatase 96 U/L (38-126); Anion Gap 6 mmol/L; Blood Urea Nitrogen 15 mg/dL (7-17); Calcium 8.9 mg/dL (8.4-10.2); Carbon Dioxide 32 mmol/L (22-30); Chloride 100 mmol/L (98-107); Glucose 109 mg/dL (74-99); Non-African American GFR(CKD) 89 (>60 ml/min/1.73 sqM); Sodium 138 mmol/L (137-145); Total Bilirubin 0.6 mg/dL (0.2-1.3); Total Protein 6.7 g/dL (6.3-8.2)
[2024-05-27 11:59] LABS: Potassium 2.7 mmol/L (3.5-5.1)
--- NOTE | 2024-05-27 12:03 | P.PCN ---
Date of Procedure: 05/27/24 Description of Procedure: PREOPERATIVE DIAGNOSIS: Diverticulitis partial obstruction POSTOPERATIVE DIAGNOSIS: Rectal lesion, new suspicious for malignancy Severe diverticulosis with partial obstruction OPERATION: Colonoscopy to the ileocecal valve and appendiceal orifice, cecum Colonoscopy with cold forceps biopsy at rectum SURGEON: Jennifer Berumen MD. ANESTHESIA: MAC. INDICATIONS: The patient is an 73-year-old female who presents with change in bowel habits, partial obstruction due to diverticulitis. Benefits and risks were described and informed consent was obtained. DESCRIPTION OF PROCEDURE: The patient had undergone Sutab prep. The patient had been brought into the operating room and laid in the left lateral decubitus position. After adequate intravenous sedation, the rectum was examined with 2% lidocaine jelly. External hemorrhoids were encountered. The rectal tone was within normal limits. No lesions were palpated in the rectal vault. An Olympus colonoscope was advanced until the cecum, ileocecal valve and appendiceal orifice were clearly viewed. The prep was good. Moderate to severe sigmoid diverticulosis was encountered with partial obstruction. Anorectal lesion, 3 cm encompassing 65% of the lumen was firm rigid highly suspicious for malignancy. Multiple biopsies obtained for permanent including fresh for immediate pathology. The colon was desufflated. The patient had tolerated the procedure well. Withdrawal time was over 6 minutes. FINDINGS: Aronchick preparation quality scale 1+ (1-5) Internal hemorrhoids, grade 3 External hemorrhoids, grade 3 No arteriovenous malformations. Sigmoid diverticulosis, moderate to severe with partial obstruction sigmoid colon Anorectal lesion, 3 cm encompassing 65% of the lumen was firm rigid highly suspicious for malignancy with multiple biopsies obtained and sent for fresh RECOMMENDATIONS: Pathology pending to determine continuation of partial colectomy versus deferment for chemoradiation for malignancy
--- NOTE | 2024-05-27 12:25 | P.PN ---
Subjective Progress Note Date: 05/27/24 CHIEF COMPLAINT: Diverticulitis HISTORY OF PRESENT ILLNESS: The patient is a 73-year-old female admitted for partial obstruction due to diverticulitis. Colonoscopy was performed with new unusual findings of the rectum. Patient reports her symptoms has been recent regarding straining. ROS: No reports of nausea and vomiting. No bowel movements. No fevers or chills. No new chest pain. No productive sputum PHYSICAL EXAM: VITAL SIGNS: Reviewed CONSTITUTIONAL: Well developed and in no acute distress. EYES: Conjuctivae without sclera icterus. Extraocular movements grossly intact. HEAD, EARS, NOSE, THROAT: Moist buccal mucosa. Head is atraumatic, normocephalic. Hears conversational speech. No nasal drainage. RESPIRATORY: Non-labored respirations and equal bilateral excursions. CARDIOVASCULAR: Palpable 2+ radial pulses. ABDOMEN: Nontender. MUSCULOSKELETAL: No gross deformity of the lower extremities noted. No clubbing. No cyanosis. SKIN: Good skin turgor. Well perfused. NEUROLOGIC: Cranial nerves II through XII grossly intact. No focal or lateralizing signs. PSYCH: Appropriate affect. Alert and oriented to person, place and time. CLINICAL LABS: Reviewed. Potassium low 2.7. Presence of hypokalemia ASSESSMENT: 1. New rectal lesion suspicious for malignancy 2. Diverticulitis with partial bowel obstruction 3. Hypokalemia, acute PLAN: 1. IV fluid bolus for dehydration, 1 L to be administered. 2. Stat pathology regarding anorectal lesion for malignancy which would change surgical plan 3. Potassium supplement 40 mill equivalents oral including maintenance IV fluids with 20 mill equivalents potassium including additional oral supplements prescribed 4. Clear liquid diet 5. Admission described due to hypokalemia, partial bowel obstruction as well. Objective - Vital Signs Vital signs: Vital Signs Temp 97.8 F 05/27/24 10:56 Pulse 71 05/27/24 12:10 Resp 17 05/27/24 12:10 BP 103/54 05/27/24 12:10 Pulse Ox 99 05/27/24 12:10 FiO2 Intake & Output 05/26/24 05/27/24 05/27/24 18:59 06:59 18:59 Intake Total 300 Balance 300 Weight 66.8 kg Intake: IV 300 - Labs CBC & Chem 7: 05/27/24 11:13 05/27/24 11:13 Labs: Abnormal Lab Results - Last 24 Hours (Table) 05/27/24 Range/Units 11:13 Potassium 2.7 L* (3.5-5.1) mmol/L Carbon Dioxide 32 H (22-30) mmol/L Glucose 109 H (74-99) mg/dL
[2024-05-27] MEDS: POTASSIUM CHLORIDE ER 20 MEQ TAB.ER PO STA (12:29)
[2024-05-27] MEDS: SODIUM CHLORIDE 0.9% 1,000 ML IV ONE (12:29)
--- NOTE | 2024-05-27 12:31 | P.PN ---
Progress Note - Text Progress Note Date: 05/27/24 Notified by pathologist that findings consistent with ischemic changes. No evidence of malignancy. Will proceed with colectomy.
[2024-05-27] MEDS: metroNIDAZOLE 500 MG TAB PO SCH (13:00)
[2024-05-27] MEDS: NEOMYCIN 500 MG TAB PO SCH (13:00)
[2024-05-27] MEDS ORDERED: PROCHLORPERAZINE INJ 10 MG/2 ML VIAL IVP PRN (14:02)
[2024-05-27] MEDS: LACTATED RINGERS 1,000 ML IV SCH (15:13)
[2024-05-27] MEDS: ONDANSETRON 4 MG/2 ML VIAL IVP SCH (15:14)
[2024-05-27] MEDS: PEG 3350 (420 GM/BTL) + LYTES 4,000 ML BOTTLE PO ONE (16:37)
[2024-05-27] MEDS: SODIUM CHLORIDE 0.9% 1,000 ML with POTASSIUM CHLORIDE 20 MEQ IV SCH (16:38)
[2024-05-27] MEDS: POTASSIUM CHLORIDE ER 10 MEQ TAB.ER.PRT PO SCH (21:14)
[2024-05-27] MEDS: NORTRIPTYLINE 25 MG CAP PO SCH (21:14)
[2024-05-27] MEDS: GABAPENTIN 300 MG CAP PO SCH (21:14)
[2024-05-27] MEDS: METOCLOPRAMIDE 5 MG/ML 2 ML VIAL IVP PRN (21:18)
[2024-05-27] MEDS: TEMAZEPAM 15 MG CAP PO ONE (23:10)
[2024-05-28 03:58] LABS: Basophils % (A) 0 %; Eosinophils # (A) 0.1 k/uL (0-0.7); Eosinophils % (A) 2 %; HCT 34.9 % (34.0-46.0); Lymphocytes # (A) 1.9 k/uL (1.0-4.8); Lymphocytes % (A) 30 %; MCH 30.4 pg (25.0-35.0); MCHC 34.3 g/dL (31.0-37.0); MCV 88.6 fL (80.0-100.0); Monocytes # (A) 0.5 k/uL (0-1.0); Monocytes % (A) 8 %; Neutrophils # (A) 3.7 k/uL (1.3-7.7); Neutrophils % (A) 58 %; Platelet Count 163 k/uL (150-450); RBC 3.94 m/uL (3.80-5.40); RDW 12.1 % (11.5-15.5); WBC 6.4 k/uL (3.8-10.6)
[2024-05-28 04:12] LABS: African American GFR (CKD) >90 (>60 ml/min/1.73 sqM); Anion Gap 6 mmol/L; Blood Urea Nitrogen 8 mg/dL (7-17); Calcium 7.6 mg/dL (8.4-10.2); Carbon Dioxide 23 mmol/L (22-30); Chloride 105 mmol/L (98-107); Glucose 85 mg/dL (74-99); Non-African American GFR(CKD) >90 (>60 ml/min/1.73 sqM); Potassium 3.3 mmol/L (3.5-5.1); Sodium 134 mmol/L (137-145)
[2024-05-28] MEDS ORDERED: ALVIMOPAN 12 MG CAPSULE PO PRN (05:00)
[2024-05-28] MEDS ORDERED: ACETAMINOPHEN TAB 500 MG TAB PO PRN (05:00)
[2024-05-28] MEDS ORDERED: metroNIDAZOLE-NS PMX 500 MG in SALINE 1 100ML.BAG IVPB PRN (05:00)
[2024-05-28] MEDS ORDERED: ONDANSETRON 4 MG/2 ML VIAL IVP PRN (05:00)
[2024-05-28] MEDS: POTASSIUM CHLORIDE ER 20 MEQ TAB.ER PO STA (06:38)
[2024-05-28] MEDS ORDERED: MELOXICAM 7.5 MG TAB PO PRN (07:00)
[2024-05-28] MEDS ORDERED: HYDROmorphone 0.5 MG/0.5 ML SYRINGE IVP PRN (07:03)
[2024-05-28] MEDS: SODIUM CHLORIDE 0.9% 2,000 ML IV ONE (07:51)
[2024-05-28] MEDS: GABAPENTIN 300 MG CAP PO SCH ×2 (07:57→14:47)
[2024-05-28] MEDS: LACTATED RINGERS 1,000 ML IV SCH (10:03)
[2024-05-28] MEDS: ALVIMOPAN 12 MG CAPSULE PO PRN (11:00)
[2024-05-28] MEDS: ACETAMINOPHEN TAB 500 MG TAB PO PRN (11:00)
[2024-05-28] MEDS: IV FLUID CONTINUATION 1,000 ML IV ONE (11:04)
[2024-05-28] MEDS: fentaNYL (PF) 50 MCG/ML 2 ML AMP IVP PRN (11:34)
[2024-05-28] MEDS: MIDAZOLAM 2 MG/2 ML VIAL IV PRN (11:34)
[2024-05-28] MEDS: HEPARIN SODIUM,PORCINE 5,000 UNIT/ML 1 ML VIAL SQ PRN (11:43)
[2024-05-28] MEDS ORDERED: SODIUM CHLORIDE 0.9% (PF) 10 ML VIAL ONE (12:40)
[2024-05-28] MEDS ORDERED: NEOSTIGMINE 1 MG/ML 10 ML VIAL ONE (12:40)
[2024-05-28] MEDS ORDERED: ROCURONIUM 10 MG/ML (5 ML VIAL) IV ONE (12:40)
[2024-05-28] MEDS ORDERED: PHENYLEPHRINE-0.9% NACL SYG 1,000 MCG/10 ML SYRINGE ONE (12:40)
[2024-05-28] MEDS ORDERED: ROPIVACAINE 5 MG/ML 30 ML VIAL ONE (12:40)
[2024-05-28] MEDS ORDERED: PROPOFOL 10 MG/ML 20 ML VIAL IV ONE (12:40)
[2024-05-28] MEDS ORDERED: LIDOCAINE 1% INJ 10MG/ML (20 ML MDV) ONE (12:40)
[2024-05-28] MEDS ORDERED: GLYCOPYRROLATE 0.2 MG/ML 2 ML VIAL ONE (12:40)
[2024-05-28] MEDS ORDERED: fentaNYL (PF) 50 MCG/ML 2 ML AMP ONE (12:40)
[2024-05-28] MEDS ORDERED: HYDROmorphone (PF) 1 MG/ML ONE (12:40)
[2024-05-28] MEDS ORDERED: SUCCINYLCHOLINE CHLORIDE 200 MG/10 ML VIAL IV ONE (12:40)
[2024-05-28] MEDS: LIDOCAINE 1%-EPI 1:100,000 20 ML VIAL SQ ONE (13:34)
[2024-05-28] MEDS: LACTATED RINGERS 1,000 ML IV ONE ×2 (13:59→15:58)
--- NOTE | 2024-05-28 14:10 | P.ANPRN ---
Procedure Note - Anesthesia - Nerve Block Performed Bilateral Erector Spinae Single Time Out Performed: Yes (1133) Date of Procedure: 05/28/24 Procedure Start Time: 11:34 Procedure Stop Time: 11:39 Location of Patient: PreOp Indication: Acute Post-Operative Pain Specifically requested for management of pain by DrCintia: Jennifer Berumen Sedation Type: Sedate with meaningful contact maintained Preparation: Sterile Prep Position: Sitting Catheter: None Needle Types: Pajunk Needle Gauge: 21 Ultrasound used to visualize needle placement: Yes Ultrasound used to observe medication spread: Yes Injectate: 0.5% Ropivacaine (see comment for volume) (15cc+10cc nacl pf each side) Blood Aspirated: No Pain Paresthesia on Injection Noted: No Resistance on Injection: Normal Image Stored and Saved: Yes Events: Uneventful and Well Tolerated
[2024-05-28] MEDS ORDERED: NALOXONE 0.4 MG/ML 1 ML VIAL IV PRN (17:03)
[2024-05-28] MEDS ORDERED: HYDROmorphone 1 MG/ML 1 ML SYRINGE IVP PRN (17:05)
[2024-05-28] MEDS: fentaNYL PCA 500 MCG/50 ML BAG IV SCH (18:52)
[2024-05-28] MEDS: KETOROLAC 15 MG/ML 1 ML VIAL IVP SCH (19:37)
[2024-05-28] MEDS: ACETAMINOPHEN IV (For NPO) 1,000 MG in EMPTY BAG 1 BAG IVPB SCH (19:44)
[2024-05-28] MEDS: metroNIDAZOLE-NS PMX 500 MG in SALINE 1 100ML.BAG IVPB SCH (20:44)
--- NOTE | 2024-05-29 08:34 | P.OP ---
Date of Procedure: 05/28/24 Description of Procedure: SURGEON: CAROLINE FLYNN MD PREOPERATIVE DIAGNOSES: 1. Sigmoid diverticulitis with partial large bowel obstruction 2. Hypertensive heart disease 3. Atrial fibrillation 4. Gastroesophageal reflux disease 5. Supraventricular tachycardia 6. Polyneuropathy 7. Post-operative nausea and vomiting 8. Motion sickness 9. Internal/external grade 3 hemorrhoids POSTOPERATIVE DIAGNOSES: 1. Sigmoid diverticulitis with partial large bowel obstruction 2. Hypertensive heart disease 3. Atrial fibrillation 4. Gastroesophageal reflux disease 5. Supraventricular tachycardia 6. Polyneuropathy 7. Post-operative nausea and vomiting 8. Motion sickness 9. Internal/external grade 3 hemorrhoids 10. Pandiverticulosis OPERATION: 1. Robotic-assisted daVinci Xi sigmoid colectomy with low anterior resection using 29 mm Ethicon powered stapler 2. Intraoperative colonoscopy used for sigmoidoscopy Anesthesia: GETA, local, regional Estimated Blood Loss (ml): 30 Urine: 800 mL Pathology: 1. Sigmoid colon 2. EEA donuts 3. Proximal colotomy Condition: stable Disposition: floor COMPLICATIONS: None. Operative Findings: 1. Redundant sigmoid colon 2. Anastomosis with EEA stapler 29 mm 3. No tension or torsion along the anastomosis 4. Doughnuts thick and both sides and viable 5. Moderately redundant sigmoid colon without tension at anastomosis 6. Negative leak test with viable anastomosis. 7. Six (6) inches sigmoid colon resected. 8. Pandiverticulosis with uterus and ovaries present. INDICATIONS: The patient is a 73-year-old female who presents with change in bowel habits, including sigmoid diverticulitis with partial bowel obstruction confirmed by colonoscopy. Patient underwent preoperative 2-week high-protein diet including cardiovascular optimization. Enhanced colon recovery program was initiated. Benefits and risks of surgical intervention was described in detail including infection, injury to the ureter, colostomy creation, possibility for additional surgery was discussed at length. Informed consent was obtained. All questions of the patient and family were answered. DESCRIPTION: Earlier the patient had undergone a bowel prep using the enhanced colon recovery program. The patient was transferred to the operating room and placed supine. After general induction, the abdomen was prepped and draped in standard sterile fashion. Ioban was placed along the abdomen to minimize any contamination of skin floor. A Hatfield catheter was placed. After a timeout protocol was performed, attention was then brought to the left upper quadrant whereby a 0 degree 5 mm laparoscopic trocar entry was performed. The abdominal cavity was entered and insufflated to 15 mmHg pressure, which was tolerated well. Diagnostic laparoscopy confirmed sigmoid colon. The small bowel was unremarkable. Next a robotic 12-mm trocar was placed along the right lateral abdominal wall 20 cm superior from the pelvis. Two 8 mm ports were placed along the upper abdomen. Ports were placed 10 cm apart from each other including 20 cm away from the target anatomy of the left pelvis. The 12-mm port was exchanged for an 8 mm robotic port at the left upper quadrant. The robot was docked along the left lateral abdomen. The patient was positioned in steep Trendelenburg position at 21-degrees. Using atraumatic graspers and vessel sealer, the robotic system was docked and primed as described. Instruments were interchanged by the corporate law assistant including hook cautery, needle sales warehouse driver, robotic stapler and vessel sealer. The robot stapler was prepared along the right lateral abdominal wall. The stapler 12-mm port was arranged along the right lateral abdominal wall. Next, attention was brought to identify the sigmoid colon. A stay suture using 3- 0 silk was placed along the anterior serosa of the redundant sigmoid colon. The sigmoid mesentery was mobilized using a vessel sealer whereby the descending colon was marked and tagged. Using multiple fires of the robot stapler 60 mm green load, the proximal sigmoid colon was divided. The mesentery of the sigmoid colon was mobilized towards the pelvic brim and sacral promontory using a vessel sealer. The sigmoid volvulus was reduced with viable colon. Next, the sigmoid colon was divided using the robotic stapler 60 mm black staple loads. The rest of the sigmoid colon mesentery was mobilized using vessel sealer. Additionally, the sigmoid colon was mobilized onto the colon to minimize injury to the ureters. I went to the foot of the bed to confirm sizers and placement of 29-mm Ethicon powered stapler. I re-scrubbed into the case. The robotic arms were temporarily undocked. A 29-mm anvil was placed with a 3-0 silk sutured at the tip of the anvil advice clerk. Then the anvil was placed via the left upper quadrant 12 mm port. All robotic arms were re-docked. I went back to the console. The staple line was opened using cautery. The anvil was entered into the proximal descending colon. The colotomy was closed using 60 mm green load. Next, the sharp tip of the anvil advice clerk was brought through the staple line. The anvil advice clerk was removed from the abdomen using empty clip appliers. I went to the foot of the bed to place the powered Ethicon 29 mm stapler via the rectum. The anvil and stapler were mated for 1 minute. The doughnuts were intact on both sides and thick. An intraoperative leak test was performed as I inserted the colonoscope to the anastomosis. Endoscopic images were obtained. Irrigation was placed in the pelvis and no air leaks were identified. Irrigation fluid was aspirated from the pelvis until dry. I went back to the console. All sponges and needles were removed from the abdominal cavity. The robot was undocked. I re-scrubbed into the case. Via the left upper quadrant port, the sigmoid colon was removed using 15 mm Endo Catch bag. All sponges were removed from the abdominal cavity. The left upper quadrant incision was widened to 3-cm. No contamination had occurred throughout the case. The fascial defect was oversewn using 0 Vicryl and a Adrian Espino. Next all pneumoperitoneum was evacuated from the abdominal cavity. The 8-mm trocar sites were reapproximated using 4-0 Monocryl in an interrupted subcuticular fashion. Local anesthetic was infiltrated to all wounds for postop analgesia. All incisions were also cleansed with diluted hydrogen peroxide. An itzbigell Ag advance surgical dressing was placed over the colon extraction site. Liquid glue was applied to the rest of the skin incisions. The patient had tolerated the procedure well. The patient was extubated successfully. The patient was transferred to the postanesthesia care unit in stable condition. Intraoperative findings were described in detail to the patient's family.
[2024-05-29 09:09] VITALS: RESP 16
--- NOTE | 2024-05-29 15:31 | P.PN ---
Subjective Progress Note Date: 05/29/24 No acute events overnight. Patient states that her pain is well-controlled on current regimen. No nausea or vomiting. No fevers or chills. Endorses incisional pain worse with movement. No flatus or bowel movement since OR. Ambulatory and voiding. Objective - Vital Signs Vital signs: Vital Signs Temp 98.3 F 05/29/24 12:37 Pulse 92 05/29/24 12:37 Resp 16 05/29/24 12:37 BP 109/70 05/29/24 12:37 Pulse Ox 95 05/29/24 12:37 FiO2 Intake & Output 05/28/24 05/29/24 05/29/24 18:59 06:59 18:59 Intake Total 2250 Output Total 1105 Balance 1145 Intake: IV 2250 Output: Urine 1075 Estimated Blood Loss 30 Other: Voiding Method Toilet - Exam Gen: AxO, NAD Pulm: non-labored respirations Abd: soft, minimally tender around incisions. Non-distended. No guarding/rebound/rigidity Extrem: no edema seen - Labs CBC & Chem 7: 05/28/24 02:52 05/28/24 02:52 Assessment and Plan Assessment: Patient is a 73-year-old female who is postoperative day 1 from sigmoid colectomy Plan: -Diet as tolerated -PRN pain and nausea control -Encourage ambulation -DVT and GI prophylaxis -Await return of bowel function Parviz Christianson M.D.
[2024-05-30 07:13] VITALS: BP 151/78; PULSE 90; TEMP 97.8
--- NOTE | 2024-05-31 21:05 | P.DS ---
Providers Date of admission: 05/28/24 14:39 Expected date of discharge: 05/30/24 Attending physician: Jennifer Berumen [facility] Course: POSTOPERATIVE DIAGNOSES: 1. Sigmoid diverticulitis with partial large bowel obstruction 2. Hypertensive heart disease 3. Atrial fibrillation 4. Gastroesophageal reflux disease 5. Supraventricular tachycardia 6. Polyneuropathy 7. Post-operative nausea and vomiting 8. Motion sickness 9. Internal/external grade 3 hemorrhoids 10. Pandiverticulosis COURSE: The patient is a 73-year-old female who presents with change in bowel habits, including sigmoid diverticulitis with partial bowel obstruction confirmed by colonoscopy. Patient underwent preoperative 2-week high-protein diet including cardiovascular optimization. Enhanced colon recovery program was initiated. Benefits and risks of surgical intervention was described in detail including infection, injury to the ureter, colostomy creation, possibility for additional surgery was discussed at length. Informed consent was obtained. All questions of the patient and family were answered. Procedures: OPERATION: 1. Robotic-assisted daVinci Xi sigmoid colectomy with low anterior resection using 29 mm Ethicon powered stapler 2. Intraoperative colonoscopy used for sigmoidoscopy Anesthesia: GETA, local, regional Estimated Blood Loss (ml): 30 Urine: 800 mL Pathology: 1. Sigmoid colon 2. EEA donuts 3. Proximal colotomy Condition: stable Disposition: floor COMPLICATIONS: None. Operative Findings: 1. Redundant sigmoid colon 2. Anastomosis with EEA stapler 29 mm 3. No tension or torsion along the anastomosis 4. Doughnuts thick and both sides and viable 5. Moderately redundant sigmoid colon without tension at anastomosis 6. Negative leak test with viable anastomosis. 7. Six (6) inches sigmoid colon resected. 8. Pandiverticulosis with uterus and ovaries present. Patient Condition at Discharge: Stable Plan - Discharge Summary Discharge Rx Participant: No New Discharge Prescriptions: New Simethicone [Gas-X] 125 mg PO AC-TID PRN #20 capsule PRN Reason: Pain Ibuprofen [Motrin] 600 mg PO Q8HR PRN #30 tab PRN Reason: Pain Acetaminophen Tab [Tylenol Tab] 1,000 mg PO Q6HR PRN #30 tablet PRN Reason: Pain Continue Pravastatin Sodium [Pravachol] 40 mg PO HS Lisinopril-Hctz 10-12.5 mg [Zestoretic 10-12.5] 1 tab PO BID Gabapentin [Neurontin] 600 mg PO QAM Acyclovir [Zovirax] 500 mg PO DIRECTED PRN PRN Reason: Herpes amLODIPine [Norvasc] 10 mg PO PC-LUNCH PRN PRN Reason: Elevated BP Nortriptyline HCl [Pamelor] 25 mg PO HS Metoprolol Tartrate [Lopressor] 25 mg PO BID Coq10(Unknown Dose) 1 dose PO HS Gabapentin [Neurontin] 300 mg PO 1200 Gabapentin 600 mg PO HS Discontinued bisacodyL [Dulcolax] 10 mg RECTAL DAILY #5 supp Lactulose [Cephulac] 30 ml PO BID #500 ml Discharge Medication List Acyclovir [Zovirax] 500 mg PO DIRECTED PRN 01/03/20 [History] Gabapentin [Neurontin] 600 mg PO QAM 01/03/20 [History] Lisinopril-Hctz 10-12.5 mg [Zestoretic 10-12.5] 1 tab PO BID 01/03/20 [History] Pravastatin Sodium [Pravachol] 40 mg PO HS 01/03/20 [History] amLODIPine [Norvasc] 10 mg PO PC-LUNCH PRN 01/06/20 [History] Coq10(Unknown Dose) 1 dose PO HS 05/21/24 [History] Gabapentin 600 mg PO HS 05/21/24 [History] Gabapentin [Neurontin] 300 mg PO 1200 05/21/24 [History] Metoprolol Tartrate [Lopressor] 25 mg PO BID 05/21/24 [History] Nortriptyline HCl [Pamelor] 25 mg PO HS 05/21/24 [History] Acetaminophen Tab [Tylenol Tab] 1,000 mg PO Q6HR PRN #30 tablet 05/29/24 [Rx] Ibuprofen [Motrin] 600 mg PO Q8HR PRN #30 tab 05/29/24 [Rx] Simethicone [Gas-X] 125 mg PO AC-TID PRN #20 capsule 05/29/24 [Rx] Follow up Appointment(s)/Referral(s): Jennifer Berumen MD [STAFF PHYSICIAN] - 06/01/24 6:30 pm (TELE[facility] - DR WILL CALL YOU BETWEEN 9 am to 8 pm) Patient Instructions/Handouts: Deep Vein Thrombosis (DC), Abdominal Binder (DC), Colectomy Diet (DC), Laparoscopic Bowel Resection (DC) Activity/Diet/Wound Care/Special Instructions: EXPECT BOWEL MOVEMENT WITH BLOOD FOR 1 WEEK, Jun 05, 2024 TAKE LAXATIVE FOR CONSTIPATION AFTER 4 DAYS, 06/02/24 NO LONG DRIVES OR AIRPLANE RIDES OVER 60 MINUTES FOR THE NEXT 2 WEEKS, Jun 05, 2024, DUE TO HIGH RISK OF PULMONARY EMBOLISM/DVTs May drive on 05/31/24 Wear abdominal binder for comfort. No lifting over 4 pounds in 4 weeks Jun 27, 2024 May shower. No bath tub soaks for two weeks until Jun 05, 2024 Avoid steak, tough meats and seeds such as raspberry seeds until Jun 27, 2024. See diverticulitis, low fiber, colectomy diet Use Tylenol and ibuprofen scheduled for the next 24-48 hours for best pain relief. Use ice along incisions for today to prevent swelling. Discharge Disposition: HOME SELF-CARE
== END 2024-05-30 09:41 | disposition home or self-care (01) | DRG 329 ==
LOC: ORWHC2ENDO 10:16 → 4SSUR 15:02 → ORWHC2ENDO 05-28 14:39
PROVIDERS: ADMIT Surgery Plastic and Reconstructive Surgery; ATTEND Surgery Plastic and Reconstructive Surgery
PROC: 0DNW4ZZ Release Peritoneum, Percutaneous Endoscopic Approach (ICD-10-PCS; 2024-05-28)
PROC: 0DJD8ZZ Inspection of Lower Intestinal Tract, Via Natural or Artificial Opening Endoscopic (ICD-10-PCS; 2024-05-28)
PROC: 3E0T3BZ Introduction of Anesthetic Agent into Peripheral Nerves and Plexi, Percutaneous Approach (ICD-10-PCS; 2024-05-28)
PROC: 0DBP8ZX Excision of Rectum, Via Natural or Artificial Opening Endoscopic, Diagnostic (ICD-10-PCS; 2024-05-28)
PROC: 8E0W4CZ Robotic Assisted Procedure of Trunk Region, Percutaneous Endoscopic Approach (ICD-10-PCS; 2024-05-28)
PROC: 0DTN4ZZ Resection of Sigmoid Colon, Percutaneous Endoscopic Approach (ICD-10-PCS; principal; 2024-05-28 11:05)
DX: K57.30 Diverticulosis of large intestine without perforation or abscess without bleeding (principal); K56.2 Volvulus; I47.10 Supraventricular tachycardia, unspecified; K56.600 Partial intestinal obstruction, unspecified as to cause; K62.6 Ulcer of anus and rectum; E78.5 Hyperlipidemia, unspecified; E87.6 Hypokalemia; G62.9 Polyneuropathy, unspecified; I48.91 Unspecified atrial fibrillation; K66.0 Peritoneal adhesions (postprocedural) (postinfection); K21.9 Gastro-esophageal reflux disease without esophagitis; K64.2 Third degree hemorrhoids; K64.4 Residual hemorrhoidal skin tags; T75.3XXA Motion sickness, initial encounter; Z82.49 Family history of ischemic heart disease and other diseases of the circulatory system; Z79.899 Other long term (current) drug therapy
CPT/HCPCS: 45380; 64999; 80048; 80053; 83735; 85025; 88305; 88331

== ENCOUNTER → 2024-07-21 | Outpatient (CLI) | payer MEDICARE ==
--- NOTE | 2024-07-21 10:37 | MM ---
Reason for Exam: Follow-up at short interval from prior study. Last screening mammogram was performed 7 month(s) ago. Patient History: Menarche at age 11. First Full-Term at age 22. Postmenopausal. Patient has history of breast feeding. Patient used Hormonal Contraceptives for 3 years. 1980, Benign Excisional Biopsy on the right side. Daughter had breast cancer, age 29. Sister had ovarian cancer under age 50. Risk Values: Tasha 5 year model risk: 4.0%. NCI Lifetime model risk: 8.0%. Prior Study Comparison: 11/06/2022 Bilateral MG 3D screening mammo w/cad, [facility]. 12/16/2023 Bilateral MG 3D screening mammo w/cad, [facility]. 12/23/2023 Right MG 3D work up w/cad RT, [facility]. Tissue Density: Right: The breasts are heterogeneously dense, which may obscure small masses. Findings: Analyzed By CAD. Stable benign-appearing scattered calcifications. No new suspicious masses, calcifications or distortions. Overall Assessment: Benign, BI-RAD 2 Management: Screening Mammogram of both breasts in 1 year. Results were given to the patient verbally at the time of exam. Patient should continue monthly self-breast exams. A clinical breast exam by your physician is recommended on an annual basis. This exam should not preclude additional follow-up of suspicious palpable abnormalities. Note on Tasha scores and lifetime risk: 1. A Tasha score greater than 3% is considered moderate risk. If this is the case, consider specialist referral to assess eligibility for a risk reducing agent. 2. If overall lifetime risk for the development of breast cancer is 20% or higher, the patient may qualify for future screening with alternating mammogram and breast MRI. [facility], , 07/21/2024 10:34 AM. Electronically signed and approved by: Chris Noble DO
== END | disposition home or self-care (01) ==
LOC: RADMAMWWP 09:52
PROVIDERS: ATTEND Family Medicine
DX: R92.8 Other abnormal and inconclusive findings on diagnostic imaging of breast (principal); R92.333 Mammographic heterogeneous density, bilateral breasts; Z78.0 Asymptomatic menopausal state; Z80.3 Family history of malignant neoplasm of breast; Z92.0 Personal history of contraception; Z80.41 Family history of malignant neoplasm of ovary
CPT/HCPCS: 77065; G0279; 77061

== ENCOUNTER → 2025-01-03 | Outpatient (CLI) | payer MEDICARE ==
[2025-01-03 21:02] LABS: C Reactive Protein <0.30 mg/dL (0.00-0.80); Creatine Kinase 94 U/L (26-186)
== END | disposition home or self-care (01) ==
LOC: LABWHC1 13:22
PROVIDERS: ATTEND Psychiatry & Neurology Neurology
DX: G62.9 Polyneuropathy, unspecified (principal)
CPT/HCPCS: 36415; 82306; 82550; 82607; 85652; 86140